=== PATIENT | male | born 1955 | race Two or more races ===

== ENCOUNTER 2017-03-16 14:33 | Emergency (ER) | payer OTHER ==
[2017-03-16 14:53] VITALS: BP 117/65
--- NOTE | 2017-03-16 14:54 | UC ---
Lower Extremity/Ankle HPI - HPI Summary HPI Summary: 61 year old male presents with left foot complaint. Pt stepped on sara nail w/ LEFT foot today 1200. States nail went through shoe, pt took off sock and did not see any bleeding- cleaned bottom of foot w/ water/peroxide. Needs tetanus updated. [ End ] - History of Current Complaint Chief Complaint: UCLowerExtremity Stated Complaint: LEFT FOOT COMPLAINT Time Seen by Provider: 03/16/17 14:40 Hx Obtained From: Patient Onset/Duration: Sudden Onset Severity Initially: Mild Able to Bear Weight: Yes - Allergies/Home Medications Allergies/Adverse Reactions: Allergies Allergy/AdvReac Type Severity Reaction Status Date / Time No Known Allergies Allergy Verified 03/16/17 14:41 Home Medications: Home Medications Amiodarone TAB* [Cordarone TAB*] 200 mg PO DAILY 03/16/17 [History Confirmed 05/22] Warfarin TAB(*) [Coumadin TAB(*)] 1 tab QPM 03/16/17 [History Confirmed 03/16/17 ] PMH/Surg Hx/FS Hx/Imm Hx Previously Healthy: Yes Endocrine History: Diabetes Cardiovascular History: Cardiac Disease, Atrial Fibrillation - Surgical History Surgical History: None Surgery Procedure, Year, and Place: Rt KNEE - ARTHROSCOPIC - MMT - Family History Known Family History: Positive: None - Social History Occupation: Employed Full-time Lives: With Family Alcohol Use: None Substance Use Type: None Smoking Status (MU): Heavy Every Day Tobacco Smoker Review of Systems Skin: Other - break in skin bottom of the left foot from nail Musculoskeletal: Negative All Other Systems Reviewed And Are Negative: Yes Physical Exam Triage Information Reviewed: Yes Appearance: Well-Appearing, Well-Nourished Vital Signs Reviewed: Yes Respiratory Exam: Normal Cardiovascular Exam: Normal Musculoskeletal Exam: Normal Neurological Exam: Normal Psychological Exam: Normal Skin Exam: Normal Skin: Positive: Other - bottom of the left foot with superficial pinpoint abrasion just distal to the heel . peripheral pulses intact. cap refill < 3 sec / placed triple antibiotic on the foot with band aid. no redness or erythema or discharge Lower Extremity Course/Dx - Course Course Of Treatment: stepped on a nail outside which he states was over 20 years old - Differential Dx/Diagnosis Differential Diagnosis/HQI/PQRI: Contusion, Other Provider Diagnoses: Stepped on sara nail left foot Discharge - Discharge Plan Condition: Good Disposition: HOME Patient Education Materials: Tetanus Immune Globulin (By injection)
[2017-03-16] MEDS ORDERED: Tetan/Diph/Pertus SYR(Tdap)* 0.5 ML SYR(BOOSTRIX) use SYR IM ONE (15:06)
== END 2017-03-16 15:20 | disposition home or self-care (01) ==
LOC: UCCORT 14:33
DX: S90.812A Abrasion, left foot, initial encounter (principal); W22.8XXA Striking against or struck by other objects, initial encounter; Y93.9 Activity, unspecified; Y92.9 Unspecified place or not applicable; Y99.9 Unspecified external cause status; E11.9 Type 2 diabetes mellitus without complications; I48.91 Unspecified atrial fibrillation; Z79.01 Long term (current) use of anticoagulants; Z72.0 Tobacco use
CPT/HCPCS: 90471; 90715; 99211; G0463

== ENCOUNTER 2017-04-27 08:36 | Emergency (ER) | payer OTHER ==
--- NOTE | 2017-04-27 08:39 | UC ---
Hand/Wrist HPI - HPI Summary HPI Summary: Pt noticed swelling and redness of right third digit nailbed 4-5 days ago. Has been increasing in redness and pain since. Does not recall a specific injury - History Of Current Complaint Hx Obtained From: Patient Severity Initially: Mild Severity Currently: Moderate Pain Intensity: 4 Pain Scale Used: 0-10 Numeric Character Of Pain: Dull, Throbbing Aggravating Factor(s): Movement Alleviating Factor(s): Ice Associated Signs And Symptoms: Positive: Swelling, Redness. Negative: Fever <Praneeth Maynard - Last Filed: 04/27/17 09:37> <Svetlana Anguiano - Last Filed: 04/27/17 11:17> - History Of Current Complaint Stated Complaint: RIGHT MIDDLE FINGER COMPLAINT Time Seen by Provider: 04/27/17 08:38 - Allergies/Home Medications Allergies/Adverse Reactions: Allergies Allergy/AdvReac Type Severity Reaction Status Date / Time No Known Allergies Allergy Verified 04/27/17 08:44 PMH/Surg Hx/FS Hx/Imm Hx Endocrine History: Diabetes Cardiovascular History: Cardiac Disease, Atrial Fibrillation - Surgical History Surgical History: None Surgery Procedure, Year, and Place: Rt KNEE - ARTHROSCOPIC - MMT - Family History Known Family History: Positive: None - Social History Alcohol Use: None Substance Use Type: None Smoking Status (MU): Heavy Every Day Tobacco Smoker Type: Cigarettes Amount Used/How Often: 1.5 PPD - Immunization History Most Recent Influenza Vaccination: NOT YET 2017 Most Recent Pneumonia Vaccination: NOT YET <Praneeth Maynard - Last Filed: 04/27/17 09:37> Review of Systems Constitutional: Negative Skin: Other - Right third digit pain around nailbed ENT: Negative Respiratory: Negative Cardiovascular: Negative Gastrointestinal: Negative Neurological: Negative Psychological: Negative Is Patient Immunocompromised?: Yes - DM2 All Other Systems Reviewed And Are Negative: Yes <Praneeth Maynard - Last Filed: 04/27/17 09:37> Physical Exam Triage Information Reviewed: Yes Appearance: Well-Appearing, Well-Nourished Vital Signs Reviewed: Yes ENT Exam: Normal ENT: Positive: Hearing grossly normal, Pharynx normal, TMs normal Respiratory Exam: Normal Respiratory: Positive: Chest non-tender, Lungs clear, Normal breath sounds Cardiovascular Exam: Normal - Irregularly Irregular - has Afib Neurological Exam: Normal Neurological: Positive: Alert Psychological Exam: Normal Psychological: Positive: Age Appropriate Behavior Skin Exam: Other - Area of edema and erythema with a 2-3mm edetamus clearing on right third digit medial nailbed <Praneeth Maynard - Last Filed: 04/27/17 09:37> Vital Signs: Initial Vital Signs Temp 98 F 04/27/17 08:39 Pulse 64 04/27/17 08:39 Resp 16 04/27/17 08:39 BP 124/64 04/27/17 08:39 Pulse Ox 98 04/27/17 08:39 <Svetlana Anguiano - Last Filed: 04/27/17 11:17> Procedures - Incision and Drainage Site: Right third digit nailbed Anesthesia: Other - None Instrument(s): Needle - 30G Packing: Other - None <Praneeth Maynard - Last Filed: 04/27/17 09:37> Hand/Wrist Course/Dx - Course Course Of Treatment: Has been soaking his finger at night. An I&D was performed today in the office with good relief. A time-out was performed and the area was prepped with iodine, a 30G needle was inserted in the affected area and quickly removed. Mucopurulent discharge was expelled with mild massage of the finger. Pt tolerated procedure well and experienced good relief. Rx for keflex for 7 days. - Differential Dx/Diagnosis Differential Diagnosis/HQI/PQRI: Contusion, Paronychia, Puncture Wound Provider Diagnoses: Paronychia <Praneeth Maynard - Last Filed: 04/27/17 09:37> Discharge <Praneeth Maynard - Last Filed: 04/27/17 09:37> <Svetlana Anguiano - Last Filed: 04/27/17 11:17> - Discharge Plan Condition: Stable Disposition: HOME Prescriptions: Cephalexin CAP* [Keflex CAP*] 500 mg PO TID #21 cap Patient Education Materials: Paronychia (ED) Referrals: Melita Quick [Primary Care Provider] - If Needed Additional Instructions: Keflex sent to pharmacy. Keep finger bandaged while working. If you develop fever, chills, or your symptoms worsen - please call our office or go to ED. Attestation Statement User Type: Provider - I was available for consult. This patient was seen by the LEONARDO. The patient was not presented to, seen by, or examined by me. -Porfirio <Svetlana Anguiano - Last Filed: 04/27/17 11:17>
[2017-04-27 08:46] VITALS: BP 124/64
== END 2017-04-27 09:21 | disposition home or self-care (01) ==
LOC: UCCORT 08:36
DX: L03.011 Cellulitis of right finger (principal); F17.210 Nicotine dependence, cigarettes, uncomplicated
CPT/HCPCS: 10060; 99212; G0463

== ENCOUNTER 2017-12-18 09:14 | Emergency (ER) | payer OTHER ==
[2017-12-18 09:48] VITALS: BP 133/71
--- NOTE | 2017-12-18 10:00 | UC ---
Skin Complaint HPI - HPI Summary HPI Summary: Pt presents with c/o tender, "lump" in right inner upper thigh X 3days. - History of Current Complaint Chief Complaint: UCSkin Time Seen by Provider: 12/18/17 09:53 Stated Complaint: BOIL ON RT THIGH Hx Obtained From: Patient Onset/Duration: Gradual Onset, Lasting Days, Still Present Skin Exposure Onset/Duration: Days Ago Timing: Constant Onset Severity: Mild Current Severity: Mild Pain Intensity: 2 Location: Discrete - right upper inner thigh Character: Raised, Painful Aggravating Factor(s): Touch Alleviating Factor(s): Heat Associated Signs & Symptoms: Positive: Tenderness - Allergy/Home Medications Allergies/Adverse Reactions: Allergies Allergy/AdvReac Type Severity Reaction Status Date / Time No Known Allergies Allergy Verified 12/18/17 09:35 Home Medications: Home Medications Aspirin EC TAB* [Ecotrin EC Low Dose 81 MG*] 81 mg PO DAILY 12/18/17 [History Confirmed 12/18/17] Losartan TAB* [Cozaar TAB*] 25 mg PO DAILY MDD currently on hold 12/18/17 [ History Confirmed 12/18/17] Warfarin TAB(*) [Coumadin TAB(*)] 5 mg PO MOWEFR 12/18/17 [History Confirmed ] dilTIAZem HCl [Cartia Xt] 200 mg PO BID 12/18/17 [History Confirmed 12/18/17] metFORMIN* [Glucophage 500 MG TAB *] 500 mg PO DAILY 12/18/17 [History Confirmed 12/18/17] Review of Systems Constitutional: Negative Skin: Other - tender lum, right upper inner thigh Eyes: Negative ENT: Negative Respiratory: Negative Cardiovascular: Negative Gastrointestinal: Negative Genitourinary: Negative Motor: Negative Neurovascular: Negative Musculoskeletal: Negative Neurological: Negative Psychological: Negative Is Patient Immunocompromised?: No All Other Systems Reviewed And Are Negative: Yes PMH/Surg Hx/FS Hx/Imm Hx Previously Healthy: Yes - Surgical History Surgical History: None Surgery Procedure, Year, and Place: Right Medial Meniscus, ~1997 - Family History Known Family History: Positive: Cardiac Disease - Social History Occupation: Retired Lives: With Family Alcohol Use: None Substance Use Type: None Smoking Status (MU): Heavy Every Day Tobacco Smoker Type: Cigarettes Amount Used/How Often: 1 1/2 PPD Length of Time of Smoking/Using Tobacco: Since Age 18 Have You Smoked in the Last Year: Yes - Immunization History Most Recent Influenza Vaccination: NOT YET 2017 Most Recent Pneumonia Vaccination: NOT YET Physical Exam Triage Information Reviewed: Yes Appearance: Well-Appearing Vital Signs: Initial Vital Signs Temp 98 F 12/18/17 09:29 Pulse 66 12/18/17 09:29 Resp 18 12/18/17 09:29 BP 133/71 12/18/17 09:29 Pulse Ox 94 12/18/17 09:29 Vital Signs Reviewed: Yes Eye Exam: Normal ENT: Positive: Hearing grossly normal Neck exam: Normal Neck: Positive: Supple Respiratory Exam: Normal Cardiovascular Exam: Normal Musculoskeletal Exam: Normal Neurological Exam: Normal Psychological Exam: Normal Skin Exam: Other - firm, tender, nickel sized lump. Course/Dx - Course Course Of Treatment: abscess not appropriate at this time for incision and drainage. - Differential Diagnoses - Skin Complaint Differential Diagnoses: Abscess, MRSA - Diagnoses Provider Diagnoses: abscess Discharge - Sign-Out/Discharge Documenting (check all that apply): Discharge/Admit/Transfer - Discharge Plan Condition: Stable Disposition: HOME Prescriptions: Cephalexin CAP* [Keflex 500 CAP*] 500 mg PO Q12H #14 cap DOXYcycline CAP(*) [DOXYcycline 100MG CAP(*)] 100 mg PO Q12H #10 cap Fluconazole 100 MG TAB* [Diflucan 100 MG TAB*] 100 mg PO DAILY #3 tab Patient Education Materials: Abscess (ED), Warm Compress or Soak (ED) Referrals: Melita Quick [Primary Care Provider] - If Needed - Billing Disposition and Condition Condition: STABLE Disposition: Home
== END 2017-12-18 10:18 | disposition home or self-care (01) ==
LOC: UCCORT 09:14
DX: L02.415 Cutaneous abscess of right lower limb (principal); A49.02 Methicillin resistant Staphylococcus aureus infection, unspecified site; Z79.01 Long term (current) use of anticoagulants; Z79.82 Long term (current) use of aspirin; Z79.84 Long term (current) use of oral hypoglycemic drugs; F17.210 Nicotine dependence, cigarettes, uncomplicated
CPT/HCPCS: 99212; G0463

== ENCOUNTER 2019-04-21 11:30 | Emergency (ER) | payer BC ==
--- OUTSIDE RECORDS SUMMARY | 2019-04-21 11:59 | XMS REPORT | Continuity of Care Document ---
:1955 External Reference #:[id number] Author Name Abhinav Kemp PA (transmitted by agent of provider Familia Ledbetter) Address [address] [place] [address] Care Team Providers Name Role Phone Osman Trinh NP Care Team Information Field Ironworker [phone] Dion Post MD - Otolaryngology Care Team Information Field Ironworker [phone] Dio Castañeda MD # - Pulmonary Care Team Information Field Ironworker Disease Alejandro Beth MD Care Team Information Field Ironworker [phone] Problems Active Problems Provider Date Atrial fibrillation Onset: 08/18/2016 Arteriosclerosis of arterial coronary artery Onset: 08/18/2016 bypass graft Paroxysmal atrial fibrillation Familia Ledbetter MD Onset: 08/18/2016 Essential hypertension Familia Ledbetter MD Onset: 08/18/2016 Atherosclerotic heart disease of [place] Familia Ledbetter MD Onset: 2016 coronary artery without angina pectoris Morbid obesity Familia Ledbetter MD Onset: 09/09/2017 Social History Type Date Description Comments Sex Unknown Tobacco Use Reviewed: 04/12/19 Patient is a current smoker, smokes 1 1/2 ppd every day Smoking Status Reviewed: 04/12/19 Patient is a current smoker, smokes 1 1/2 ppd every day Allergies, Adverse Reactions, Alerts Description No Known Drug Allergies Medications Active Medications SIG Qnty Indications Ordering Provider Date Amiodarone HCL 1 by mouth 90tabs Familia Ledbetter 10/18/2018 200mg every day MD Fannie Tablets Eliquis 1 by mouth 180tabs Familia Ledbetter 10/07/2018 5mg Tablets twice a day MD Fannie Diltiazem HCL ER 1 by mouth 180caps I48.0 Familia Ledbetter 05/06/2017 Coated Beads twice a day MD Fannie 120mg Caps ER 24HR Protonix 1 by mouth Unknown 40mg Tablets DR every day Furosemide 1 every am 1 by 180tabs Familia Ledbetter 20mg Tablets mouth every pm MD Fannie Metformin HCL ER Take 2 Tablet Unknown 500mg By Mouth twice Tablets ER 24HR a Day Atorvastatin Calcium daily Unknown 40mg Tablets Farxiga daily Unknown 10mg Tablets Medications Administered in Office Medication SIG Qnty Indications Ordering Provider Date Inj Perflutren Lipid Microspheres Taylor Lopze 02/16/2018 Per ML Injection Echocardiography 2D, With M-Mode Taylor Lopez 02/16/2018 With Spectral And Color Doppler Injection Echocardiography 2D, With M-Mode Taylor Lopez 03/10/2017 With Spectral And Color Doppler Injection Echocardiography 2D, With M-Mode Taylor Lopez 09/25/2016 With Spectral And Color Doppler Injection Immunizations Description No Information Available Vital Signs Date Vital Result Comment 04/12/2019 9:59am Height 72 inches 6'0" Weight 310.38 lb Weight 140.786 kg Heart Rate 83 /min O2 % BldC Oximetry 94 % BP Systolic 118 mmHg BP Diastolic 58 mmHg Pain Level 0 BMI (Body Mass Index) 42.1 kg/m2 09/27/2018 10:58am Height 72 inches 6'0" Weight 324.00 lb Weight 146.966 kg Heart Rate 72 /min O2 % BldC Oximetry 93 % BP Systolic 142 mmHg BP Diastolic 88 mmHg Pain Level 0 BMI (Body Mass Index) 43.9 kg/m2 BP Systolic Lying Down 152 mmHg BP Diastolic Lying Down 94 mmHg BP Systolic Sitting 146 mmHg BP Diastolic Sitting 92 mmHg Results Description No Information Available Procedures Description No Information Available Medical Devices Description No Information Available Encounters Type Date Location Provider Dx Diagnosis Office Visit 04/12/2019 [facility] Abhinav Kemp, I48.0 Paroxysmal atrial 10:[facility] [place] fibrillation I10 Essential (primary) hypertension R63.4 Abnormal weight loss E11.65 Type 2 diabetes mellitus with hyperglycemia Z79.01 USP (current) use of anticoagulants I25.10 Athscl heart disease of [place] coronary artery w/o ang pctrs R53.83 Other fatigue Z72.0 Tobacco use Assessments Date Code Description Provider 04/12/2019 I48.0 Paroxysmal atrial fibrillation Abhinav Kemp PA 04/12/2019 I10 Essential (primary) hypertension Abhinav Kemp PA 04/12/2019 R63.4 Abnormal weight loss Abhinav Kemp PA 04/12/2019 E11.65 Type 2 diabetes mellitus with hyperglycemia Abhinav Kemp PA 04/12/2019 Z79.01 terminal clerk (current) use of anticoagulants Abhinav Kemp PA 04/12/2019 I25.10 Atherosclerotic heart disease of [place] coronary Abhinav Kemp PA artery with 04/12/2019 R53.83 Other fatigue Abhinav Kemp PA 04/12/2019 Z72.0 Tobacco use Abhinav Kemp PA Plan of Treatment Future Appointment(s):10/05/2019 11:00 am - Familia Ledbetter MD at [facility]04/20/2019 7:30 am - Taylor Lopez at [facility]04/12/2019 - Abhinav Kemp PAI48.0 Paroxysmal atrial mgcoktpuomesU27 Essential (primary) hmiwijsukheoD86.4 Abnormal weight lossE11.65 Type 2 diabetes mellitus with henzeasbntbeuC95.01 terminal clerk (current) use of vzdlecgcgbsverK81.10 Athscl heart disease of [place] coronary artery w/o ang tfcekK69.83 Other aqlgcaoT94.0 Tobacco useFollow up:Lexiscan nuclear stress test near term [address] LedbetterRecommendations:Monitor and report any new or worsening symptoms For now, continue your cardiac medications as prescribed We have requested your recent bloodwork as we discussed We will arrange for a nuclear stresstest, as your stress echocardiogram in July was nondiagnostic Functional Status Description No Information Available Mental Status Description No Information Available Referrals Description No Information Available
[2019-04-21 12:16] VITALS: BP 126/51
--- NOTE | 2019-04-21 12:42 | ED ---
GI/ HPI - HPI Summary HPI Summary: 63 yr old male with inguinal redness, groin redness and tip of penis redness. He is a diabetic, and his blood sugars have been around 250-300, and he is on metformin. He has not been as careful with is diet. The patient states he has had redness, and increased irritation to the area. No fever or chills. He feels he has a yeast infection. - History of Current Complaint Chief Complaint: UCGU Time Seen by Provider: 04/21/19 12:22 Stated Complaint: PERSONAL Pain Intensity: 0 - Allergy/Home Medications Allergies/Adverse Reactions: Allergies Allergy/AdvReac Type Severity Reaction Status Date / Time No Known Allergies Allergy Verified 04/21/19 12:16 Home Medications: Home Medications Apixaban* [Eliquis*] 2.5 mg PO BID 04/21/19 [History Confirmed 04/21/19] PMH/Surg Hx/FS Hx/Imm Hx Endocrine/Hematology History: Reports: Hx Diabetes Denies: Hx Thyroid Disease Cardiovascular History: Reports: Hx Hypertension Denies: Hx Pacemaker/ICD, Hx Peripheral Vascular Disease Respiratory History: Denies: Hx Asthma Musculoskeletal History: Denies: Hx Arthritis, Hx Osteoporosis Sensory History: Denies: Hx Cataracts, Hx Contacts or Glasses, Hx Glaucoma, Hx Hearing Aid Opthamlomology History: Denies: Hx Cataracts, Hx Contacts or Glasses, Hx Glaucoma Neurological History: Denies: Hx Headaches, Hx Seizures, Hx Transient Ischemic Attacks (TIA) Psychiatric History: Denies: Hx Anxiety, Hx Depression, Hx Panic Disorder - Surgical History Surgery Procedure, Year, and Place: Right Medial Meniscus, ~1997 Infectious Disease History: Yes Infectious Disease History: Reports: Hx Shingles, History Other Infectious Disease - viral meningitis Denies: Traveled Outside the [place] in Last 30 Days - Family History Known Family History: Positive: None, Cardiac Disease - Social History Occupation: Employed Full-time Alcohol Use: None Substance Use Type: Reports: None Smoking Status (MU): Heavy Every Day Tobacco Smoker Type: Cigarettes Amount Used/How Often: 1 1/2 PPD Length of Time of Smoking/Using Tobacco: Since Age 18 Have You Smoked in the Last Year: Yes Review of Systems Constitutional: Negative Positive: Other - irritation to skin All Other Systems Reviewed And Are Negative: Yes Physical Exam Triage Information Reviewed: Yes Vital Signs On Initial Exam: Initial Vitals Temp Pulse Resp BP Pulse Ox 98.5 F 68 18 126/51 97 04/21/19 12:05 04/21/19 12:05 04/21/19 12:05 04/21/19 12:05 04/21/19 12:05 Vital Signs Reviewed: Yes Appearance: Positive: Well-Appearing, No Pain Distress Skin: Positive: Warm, Skin Color Reflects Adequate Perfusion Head/Face: Positive: Normal Head/Face Inspection Eyes: Positive: EOMI ENT: Positive: Normal ENT inspection Neck: Positive: Nontender Respiratory/Lung Sounds: Positive: Clear to Auscultation, Breath Sounds Present Cardiovascular: Positive: RRR. Negative: Murmur Abdomen Description: Negative: Distended Male Genital Exam: Positive: Other - There is redness to the tip of the penis and in both groin creases consistent with yeast infection. No necrotic tissue and no cellulitis. Musculoskeletal: Positive: Strength/ROM Intact Neurological: Positive: Sensory/Motor Intact, Alert, Oriented to Person Place, Time, CN Intact II-III Psychiatric: Positive: Normal - [place] Coma Scale Best Eye Response: 4 - Spontaneous Best Motor Response: 6 - Obeys Commands Best Verbal Response: 5 - Oriented Coma Scale Total: 15 Diagnostics - Vital Signs Vital Signs Temp Pulse Resp BP Pulse Ox 04/21/19 12:05 98.5 F 68 18 126/51 97 - Laboratory Lab Statement: Any lab studies that have been ordered have been reviewed, and results considered in the medical decision making process. GIGU Course/Dx - Course Course Of Treatment: 63 yrold with yeast infection. Advise watch diet, control sugar and also antifungal cream and powders - Diagnoses Provider Diagnoses: Patti infection of genital region Discharge ED - Sign-Out/Discharge Documenting (check all that apply): Patient Departure All imaging exams completed and their final reports reviewed: No Studies - Discharge Plan Condition: Good Disposition: HOME Patient Education Materials: Yeast Infection (ED) Referrals: Melita Quick [Primary Care Provider] - 3 Days Additional Instructions: Use miconazole cream 2 percent to the genital area twice a day. Apply miconazole powder to the groin twice a day as well. - Billing Disposition and Condition Condition: GOOD Disposition: Home
== END 2019-04-21 12:58 | disposition home or self-care (01) ==
LOC: UCCORT 11:30
DX: B37.49 Other urogenital candidiasis (principal); E11.9 Type 2 diabetes mellitus without complications; Z79.84 Long term (current) use of oral hypoglycemic drugs; I10 Essential (primary) hypertension; F17.210 Nicotine dependence, cigarettes, uncomplicated
CPT/HCPCS: 99211; G0463